=== PATIENT | female | born 1960 | race Caucasian/White ===

== ENCOUNTER 2016-09-26 00:48 | Emergency (ER) | payer SELFPAY ==
--- NOTE | ~2016-09-26 | CT71 ---
[facility] A Service of [facility] RADIOLOGY TEXT RESULTS PATIENT: ANTONIO CERVANTES LOCATION: [place] : 62 UNIT #: [id number] AGE: [address]: Sukhwinder Mascorro DO SEX: F ORDER DR: [id number] [facility] [address] [place], [place] [address] [id number] E MR#: [id number] Acc #: [id number] NAME: ANTONIO CERVANTES : 1960 SEX: F STUDY DATE/TIME: 09/26/2016 2:41 UNIT: [facility] ROOM: STUDY DESCRIPTION: CT Head Wo Contrast Attending Physician: Sukhwinder Mascorro D.O. Ordering Physician: Sukhwinder Mascorro D.O. Primary Care Physician: Primary Care Physician No MEDICAL IMAGING REPORT This report is preliminary unless electronic signature is present EXAM Head CT, 09/26 INDICATION Dizziness and nausea tonight. Hypertension. COMPARISON None TECHNIQUE Axial images were obtained from the base to vertex without contrast. This CT exam was performed with one or more of the following radiation dose reduction techniques: automatic exposure control, adjustment of mA and/or kV according to patient size, and iterative reconstruction. FINDINGS Ventricular size and configuration are within normal limits. No acute infarct or hemorrhage is seen. There are no masses. There is no skull fracture. There is chronic mucosal thickening in the ethmoid air cells and sphenoid sinuses. IMPRESSION The brain is normal. There is some mild chronic mucosal thickening in bilateral ethmoid air cells and sphenoid sinuses. Dictated by... Donald Bonilla Jr., M.D. THIS IS AN ELECTRONICALLY VERIFIED REPORT Donald Bonilla Jr., M.D. at 09/26/2016 11:27 AM EROS/ashlee [facility] A Service of [facility] RADIOLOGY TEXT RESULTS PATIENT: ANTONIO CERVANTES LOCATION: [facility] : 62 UNIT #: [id number] AGE: [address]: Sukhwinder Mascorro DO SEX: F ORDER DR: TD: 09/26/2016 09:53 JOB #: [id number] MEDICAL IMAGING REPORT Page 1 of 1 COPY
--- NOTE | ~2016-09-26 | EKG ---
PATIENT: ANTONIO CERVANTES UNIT #: [id number] Ventricular Rate: 53 BPM Atrial Rate: 53 BPM P-R Interval: 150 ms QRS Duration: 90 ms Q-T Interval: 442 ms QTC Calculation(Bezet): 414 ms P [place]: 78 degrees Calculated R [place]: 21 degrees Calculated T [place]: 39 degrees Diagnosis Line: Sinus bradycardia Diagnosis Line: Otherwise normal ECG Diagnosis Line: No previous ECGs available Diagnosis Line: Confirmed by ALISSA MOSELEY MD ([id number]) on Diagnosis Line: 09/27/2016 2:49:42 PM INTERPRETING MD: EMIR
--- NOTE | ~2016-09-26 | CR63 ---
[facility] A Service of [facility] RADIOLOGY TEXT RESULTS PATIENT: ANTONIO CERVANTES LOCATION: [facility] : 62 UNIT #: [id number] AGE: [address]: Sukhwinder Mascorro DO SEX: F ORDER DR: [id number] [facility] [address] [place], [place] [address] [id number] E MR#: [id number] Acc #: [id number] NAME: ANTONIO CERVANTES : 1960 SEX: F STUDY DATE/TIME: 09/26/2016 1:55 UNIT: [facility] ROOM: STUDY DESCRIPTION: CR Chest 2 View Attending Physician: Sukhwinder Mascorro D.O. Ordering Physician: Sukhwinder Mascorro D.O. Primary Care Physician: Primary Care Physician No MEDICAL IMAGING REPORT This report is preliminary unless electronic signature is present EXAM Chest x-ray, 09/26 INDICATION Weakness and elevated blood pressure and chest pain started yesterday. FINDINGS Two views of the chest are compared with 06/26/2014. Cardiac and mediastinal contours are normal. The lungs are clear except for granulomatous calcification. No pneumothorax is seen. Lower thoracic dextroscoliosis is again identified. IMPRESSION No active disease. Dictated by... Donald Bonilla Jr., M.D. THIS IS AN ELECTRONICALLY VERIFIED REPORT Donald Bonilla Jr., M.D. at 09/26/2016 11:27 AM EROS/ashlee TD: 09/26/2016 09:39 JOB #: [id number] MEDICAL IMAGING REPORT Page 1 of 1 COPY
[2016-09-26 02:31] LABS: URINE SOURCE CLEAN CATCH
[2016-09-26 02:34] LABS: BASOPHIL% 0.4 % (0-2.5); EOSINOPHIL# 0.2 X10e3 (0-0.7); EOSINOPHIL% 2.2 % (0.0-7.0); HEMATOCRIT 42.1 % (35.0-45.0); HEMOGLOBIN 13.4 gm/dL (12.0-16.0); LYMPHOCYTE# 1.7 X10e3 (1.0-3.5); LYMPHOCYTE% 17.8 % (17.0-45.0); MEAN CELL VOLUME 91.5 FL (83-96); MEAN CORPUSCULAR HEMOGLOBIN 29.2 PG (28-34); MEAN CORPUSCULAR HGB CONC 31.9 g/dL (30-36); MEAN PLATELET VOLUME 9.1 FL (6.5-11.5); MONOCYTE# 0.4 X10e3 (0-1.0); MONOCYTE% 4.2 % (3.0-12.0); NEUTROPHIL% 75.4 % (40-75); PLATELET COUNT 272 X10e3 (140-420); RED CELL DISTRIBUTION WIDTH 13.3 % (11.0-15.5); WHITE BLOOD COUNT 9.3 X10e3 (4.0-10.5)
[2016-09-26 02:34] LABS: POC - CKMB <1.0 ng/mL (0.0-7.9); POC - TROPONIN <0.05 ng/mL (<=0.05)
[2016-09-26 02:37] LABS: DIFF IND NO
[2016-09-26 02:40] LABS: URINE APPEARANCE CLEAR; URINE BILIRUBIN NEG (NEG); URINE BLOOD 1+ (NEG); URINE COLOR YELLOW; URINE GLUCOSE NEG (NEG); URINE KETONE NEG (NEG); URINE LEUKOCYTE ESTERASE TRACE (NEG); URINE NITRATE NEG (NEG); URINE PROTEIN NEG (NEG); URINE SPECIFIC GRAVITY 1.008 (1.003-1.035); URINE UROBILINOGEN 0.2 MG/DL (NEG)
[2016-09-26 02:43] LABS: URBCS1 AUWI 0-2 /[HPF] (0-2); URINE BACTERIA AUWI NEG (NEGATIVE); URINE SQUAMOUS EPITHELIAL CELL NONE SEEN /[HPF]; UWBCS1 AUWI 0-2 (0-5)
[2016-09-26 02:48] LABS: CULTURE INDICATED? NO
[2016-09-26 03:00] LABS: ALBUMIN SERUM 4.3 g/dL (3.5-5.0); BILIRUBIN, DIRECT 0.1 mg/dL (0.0-0.2); BILIRUBIN,INDIRECT 0.3 mg/dL (0.0-0.9); BILIRUBIN,TOTAL 0.4 mg/dL (0.2-2.0); CALCIUM SERUM 9.3 mg/dL (8.4-10.2); GLOM FILT RATE Estimated 63.4 mL/min (>60); PROTEIN TOTAL SERUM 7.6 g/dL (6.0-8.3)
[2016-09-26 03:53] LABS: POC - CKMB <1.0 ng/mL (0.0-7.9); POC - TROPONIN <0.05 ng/mL (<=0.05)
== END 2016-09-26 05:27 | disposition left against medical advice (07) ==
LOC: CED 00:48
PROVIDERS: Emergency Medicine
DX: I10 Essential (primary) hypertension (principal); R07.9 Chest pain, unspecified; F41.9 Anxiety disorder, unspecified
CPT/HCPCS: 36415; 70450; 71020; 80048; 80076; 81003; 82553; 84443; 84484; 85025; 93005; 99285